=== PATIENT | female | born 1945 | race Caucasian/White ===

== ENCOUNTER 2018-01-05 12:49 | Emergency (ER) | payer OTHER ==
[~2018-01-05] VITALS: Ht 162.6 cm; Wt 68.0 kg
[~2018-01-05 12:49] MED LIST: AMBIEN10 MG; ATIVAN0.5 M1; INTESTINEX680 MG PO
== END 2018-01-05 18:11 | disposition home or self-care (01) ==
LOC: ER 12:49
DX: S80.02XA Contusion of left knee, initial encounter (principal); S70.12XA Contusion of left thigh, initial encounter; M79.662 Pain in left lower leg; Z60.2 Problems related to living alone; W01.198A Fall on same level from slipping, tripping and stumbling with subsequent striking against other object, initial encounter; Y93.89 Activity, other specified; Y92.018 Other place in single-family (private) house as the place of occurrence of the external cause; Y99.8 Other external cause status

== ENCOUNTER → 2018-01-24 | Emergency (ER) | payer OTHER ==
[~2018-01-24] VITALS: Ht 160 cm; Wt 68.0 kg
[~2018-01-24] MED LIST changes: +TRAMADOL HCL50 MG PO
== END | disposition left against medical advice (07) ==
LOC: ER 13:45
DX: S40.011A Contusion of right shoulder, initial encounter (principal); S80.02XA Contusion of left knee, initial encounter; S70.11XA Contusion of right thigh, initial encounter; W01.198A Fall on same level from slipping, tripping and stumbling with subsequent striking against other object, initial encounter; Y93.89 Activity, other specified; Y92.098 Other place in other non-institutional residence as the place of occurrence of the external cause; Y99.8 Other external cause status

== ENCOUNTER → 2018-02-06 | Emergency (ER) | payer OTHER ==
[~2018-02-06] VITALS: Ht 160 cm; Wt 63.5 kg
== END | disposition left against medical advice (07) ==
LOC: ER 11:03
DX: K22.0 Achalasia of cardia (principal)

== ENCOUNTER → 2018-02-27 | Emergency (ER) | payer OTHER ==
[~2018-02-27] VITALS: Ht 160 cm; Wt 68.0 kg
== END | disposition home or self-care (01) ==
LOC: ER 05:02
DX: K21.9 Gastro-esophageal reflux disease without esophagitis (principal)

== ENCOUNTER 2018-05-17 12:50 | Emergency (ER) | payer OTHER ==
[~2018-05-17] VITALS: Ht 160 cm; Wt 68.0 kg
== END 2018-05-17 21:53 | disposition home or self-care (01) ==
LOC: ER 12:50
DX: R13.19 Other dysphagia (principal)

== ENCOUNTER → 2018-08-04 | Emergency (ER) | payer OTHER ==
[~2018-08-04] VITALS: Ht 165.1 cm; Wt 68.0 kg
== END | disposition home or self-care (01) ==
LOC: ER 09:58
DX: R13.19 Other dysphagia (principal)

== ENCOUNTER 2018-08-15 03:43 | Emergency (ER) | payer OTHER ==
[~2018-08-15] VITALS: Ht 160 cm; Wt 70.3 kg
[2018-08-15] MEDS ORDERED: ONDANSETRON ODT4 MG SL (10:31)
== END 2018-08-15 13:38 | disposition home or self-care (01) ==
LOC: ER 03:43
DX: K21.9 Gastro-esophageal reflux disease without esophagitis (principal)

== ENCOUNTER → 2018-11-11 | Emergency (ER) | payer OTHER ==
[~2018-11-11] VITALS: Ht 154.9 cm; Wt 56.7 kg
[~2018-11-11] MED LIST changes: +ONDANSETRON ODT4 MG SL
== END | disposition home or self-care (01) ==
LOC: ER 10:59
DX: K52.89 Other specified noninfective gastroenteritis and colitis (principal)

== ENCOUNTER 2018-11-28 23:55 | Emergency (ER) | payer OTHER ==
[~2018-11-28] VITALS: Ht 160 cm; Wt 68.0 kg
== END 2018-11-29 06:00 | disposition home or self-care (01) ==
LOC: ER 23:55
DX: K29.60 Other gastritis without bleeding (principal)

== ENCOUNTER 2019-06-22 01:21 | Emergency (ER) | payer OTHER ==
[~2019-06-22] VITALS: Ht 160 cm; Wt 79.4 kg
== END 2019-06-22 21:24 | disposition home or self-care (01) ==
LOC: ER 01:21
DX: R10.84 Generalized abdominal pain (principal); Z60.2 Problems related to living alone

== ENCOUNTER 2019-07-10 23:55 | Emergency (ER) | payer OTHER ==
[~2019-07-10] VITALS: Ht 160 cm; Wt 79.4 kg
[2019-07-11] MEDS ORDERED: ADVIL (00:03)
== END 2019-07-11 | disposition left against medical advice (07) ==
LOC: ER 23:55
DX: R19.7 Diarrhea, unspecified (principal)